=== PATIENT | female | born 1950 | race Caucasian/White ===

== ENCOUNTER 2024-11-17 20:59 | Emergency (ER) | payer MEDICARE ==
[~2024-11-17] VITALS: Ht 167.6 cm; Wt 70.3 kg
--- NOTE | 2024-11-17 21:10 | EKG ---
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
--- NOTE | 2024-11-17 21:56 | ERN ---
ED Note History of Present Illness Stated Complaint: LEFT SHOULDER PAIN, POST SX Chief Complaint: Post-Op Problem Time Seen by MD: 21:16 Dictation: This is a 73-year-old female who presented to the emergency room with complaints of severe left shoulder pain and tightness in the chest. Apparently this started 30-40 minutes prior to the [place]. Patient had left shoulder repair at [facility] on 11/09/2024. The daughter is a nurse practitioner who decided to bring her to [facility] due to her pain and diaphoresis and a concern for cardiac etiology. Patient received Motrin Tylenol and oxycodone prior to coming to the ER. Postoperatively she was allergic to the tape with some erythema and contact dermatitis. Otherwise she has been progressing well except for the severe excruciating pain today No fever chills or rigors. Temperature 98.5 pulse 74 respirations 16 blood pressure 79/42 with a pulse oximetry of 98% on room air Allergies: Coded Allergies: Sulfa (Sulfonamide Antibiotics) (Unverified Allergy, Unknown, 11/17/24) Past Medical History Past Medical History: Hypertension Surgical History: Appendectomy, Hysterectomy, Other Surgical History Other: NECK, LEFT SHOULDER, LEFT HIP Family History: Negative Social History: Negative History: Not Applicable RN Note Reviewed/Agreed w/PFSH: Yes Review of System Dictation Constitutional: Negative for fever,chills, and weight loss Eyes: Negative for injury, pain,redness, and discharge ENT: Negative for injury,pain or swelling Cardiovascular: Negative for chest pain, palpitations, and edema Respiratory: Negative for shortness of breath, cough, and wheezing, Abdomen/GI: Negative for abdominal pain, nausea, vomiting, diarrhea, and constipation Back: Negative for injury and pain : Negative for injury, bleeding and discharge MS/Extremity: Negative for injury and deformity severe pain in the left shoulder, positive for swelling of the left shoulder area Skin: Negative for rash, and discoloration Neuro: Negative for headache, weakness, numbness, tingling, and seizure Psych: Negative for suicide ideation, homicidal ideation, and hallucinations Initial Vital Sign VS Vital Signs Date Time Temp Pulse Resp B/P (MAP) Pulse Ox O2 Delivery O2 Flow Rate FiO2 11/17/24 21:00 98.4 74 16 79/42 96 Room Air 11/17/24 22:34 0 21 Physical Exam Dictation General: awake, alert, very uncomfortable due to severe pain Head/Face: Normocephalic, atraumatic Eyes: PERRL, EOMI, vision at baseline ENT: oral cavity clear, TMs clear, no signs of infection Neck: Trachea midline, supple, no nuchal rigidity Cardiovascular: RRR, normal S1/S2, No MRGs, no JVD Respiratory: CTAB, no respiratory distress, No rales or wheezes Abdomen: Soft, non-tender, non-distended, normal bowel sounds, no guarding or rebound. Skin: Warm, dry, normal turgor, no rash MS/Extremity: Pulses equal, no cyanosis, neurovascular intact, FROM Neuro: COAx4, GCS 15, strength 5/5, CN 2-12 intact, normal cerebellar exam, normal gait, Psych: Normal behavior, mood, and affect normal Extremities-trace edema without any palpable cords, Homans sign is negative Results (Laboratory/Radiology) Laboratory/Radiology Laboratory Tests Test 11/17/24 21:58 11/18/24 01:10 White Blood Count 15.1 K/uL (4.8-10.8) H Red Blood Count 3.61 MIL/uL (4.00-5.50) L Hemoglobin 11.4 g/dL (12.0-16.0) L Hematocrit 32.5 % (36-48) L Mean Corpuscular Volume 90.0 fL (79-99) Mean Corpuscular Hemoglobin 31.6 pg (27.0-33.0) Mean Corpuscular Hemoglobin Concent 35.1 g/dL (32.0-36.0) Red Cell Distribution Width 13.0 % (11.0-15.5) Platelet Count 455 K/uL (130-400) H Mean Platelet Volume 9.4 fL (7.5-10.5) Immature Granulocyte % (Auto) 1.0 % (0-1) Neutrophils (%) (Auto) 77.9 % (40.0-77.0) H Lymphocytes (%) (Auto) 11.9 % (21.0-51.0) L Monocytes (%) (Auto) 5.2 % (3.0-13.0) Eosinophils (%) (Auto) 3.2 % (0.0-8.0) Basophils (%) (Auto) 0.8 % (0.0-5.0) Neutrophils # (Auto) 11.8 K/uL (1.8-7.7) H Lymphocytes # (Auto) 1.8 K/uL (1.0-4.8) Monocytes # (Auto) 0.8 K/uL (0.1-1.0) Eosinophils # (Auto) 0.48 K/uL (0.00-0.70) Basophils # (Auto) 0.12 K/uL (0.00-0.20) Absolute Immature Granulocyte (auto 0.15 K/uL (0-1) Nucleated Red Blood Cells 0.0 % (0.0-0.19) Sodium Level 141 mmol/L (136-145) Potassium Level 3.5 mmol/L (3.5-5.1) Chloride Level 102 mmol/L (101-111) Carbon Dioxide Level 26 mmol/L (21-32) Blood Urea Nitrogen 27 mg/dL (7-18) H Creatinine 1.0 mg/dL (0.5-1.0) Glomerular Filtration Rate Calc 59 mL/min (>90) Random Glucose 133 mg/dL (70-105) H Total Calcium 8.6 mg/dL (8.5-10.1) Total Creatine Kinase 46 U/L (21-232) Troponin I High Sensitivity 7 ng/L (4-50) Urine Color LIGHT-YELLOW (YELLOW) Urine Appearance CLEAR (CLEAR) Urine pH 6.0 (5.0-8.0) Urine Specific [place] 1.020 (1.001-1.031) Urine Protein NEGATIVE mg/dL (NEGATIVE) Urine Glucose (UA) NEGATIVE mg/dL (NEGATIVE) Urine Ketones NEGATIVE mg/dL (NEGATIVE) Urine Occult Blood NEGATIVE (NEGATIVE) Urine Nitrate NEGATIVE (NEGATIVE) Urine Bilirubin NEGATIVE mg/dL (NEGATIVE) Urine Urobilinogen 0.2 mg/dL (0.2-1.0) Urine Leukocyte Esterase 25 Jose/uL (NEGATIVE) H Urine RBC 0-1 /HPF (0-1) Urine WBC 2-5 /HPF (0-1) H Urine Squamous Epithelial Cells RARE /HPF (0-2) Urine Bacteria FEW /HPF (None Seen) Urine Hyaline Casts 2-5 /LPF (0-1 /LPF) H Labs Reviewed?: Yes EKG Comment: Twelve lead EKG done on 11/17/2024 at 9:04 p.m. showed a heart rate of 80, TX interval 163, QRS 83, QT/QTC 370/427 Impression normal sinus rhythm with nonspecific ST-T changes no acute ST-T elevations or deep ST depressions. EKG rhythm strip shows a normal sinus rhythm with no acute STT wave changes. Interpreted by ER MD Dr. Mares CT Scan Comment: REASON: SEVER SWELLING AND PAIN POST OP ORDERING PHYSICIAN: GIULIANA MARES MD PROCEDURE: UPP EXT WO - CT UPPER EXT W/O CONTRAST EXAM: CT left upper extremity, without IV contrast. CLINICAL HISTORY: Severe swelling and postoperative pain. TECHNIQUE: Axial images were acquired through the left upper extremity without IV contrast. Reformatted images were reviewed. COMPARISON: None provided. FINDINGS: BONES: Diffuse osteopenia. No acute fracture or aggressively appearing osseous lesion. JOINTS: Glenohumeral joint replacement implant in place, no evidence of hardware failure.Mild to moderate acromioclavicular osteoarthritis. SOFT TISSUES: There is a large intramuscular hematoma involving the left pectoralis major muscle and the anterior belly of the deltoid muscle with surrounding soft tissue edema and inflammation; the pectoralis major component measures about 6 x 11 x 7 cm in the anterior belly of the deltoid component measures about 5 x 8 x 9 cm. IMPRESSION: There is a large intramuscular hematoma involving the left pectoralis major muscle and the anterior belly of the deltoid muscle with surrounding soft tissue edema and inflammation. No acute fracture. Glenohumeral joint replacement implant in place, no evidence of hardware failure. /[place] DICTATED BY: LISSET MARTIN Jr., MD DATE: 11/18/24314 ELECTRONICALLY SIGNED BY: LISSET MARTIN Jr., MD DATE: 11/18/24314 ED Course ED Course Orders Procedure Category Date Status Time Chest 1vw RAD 11/17/24 Resulted 21:02 12 Lead Ekg Tracing- EKG 11/17/24 Complete Technical 21:02 Cbc With Differential LAB 11/17/24 Complete 21:02 Creatine Kinase, Total LAB 11/17/24 Complete 21:02 Troponin I High LAB 11/17/24 Complete Sensitivity 21:02 Basic Metabolic Panel LAB 11/17/24 Complete 21:02 0.9%Nacl 1000ml (Ns PHA 11/17/24 Complete 1000ml) 22:00 Ketorolac PHA 11/17/24 Complete Tromethamine 15mg/Ml 22:00 Hydromorphone 0.5mg PHA 11/17/24 Complete Syg (Dilaudid 0.5mg 22:30 Hydromorphone 0.5mg PHA 11/18/24 Complete Syg (Dilaudid 0.5mg 00:00 Ceftriaxone 1g Vial PHA 11/18/24 Complete (Rocephine 1g Inj) 00:00 Apply Ice To CPOE 11/18/24 Transmitted Operative Site 00:28 Ct Upper Ext W/O CT 11/18/24 Resulted Contrast 00:29 Urinalysis Profile LAB 11/18/24 Complete 01:14 Current Medications Medications (Trade) Dose Ordered Sig/Stephanie Route PRN Reason Start Time Stop Time Status Last Admin Dose Admin Ceftriaxone Sodium (ROCEphine 1G INJ) 1 gm ONCE ONCE IVPB 11/18/24 00:00 11/18/24 00:02 DC 11/18/24 00:07 Hydromorphone HCl (DiLAUDid 0.5MG INJ) 0.5 mg ONCE ONCE IVP 11/17/24 22:30 11/17/24 22:32 DC 11/17/24 22:38 Hydromorphone HCl (DiLAUDid 0.5MG INJ) 0.5 mg ONCE ONCE IVP 11/18/24 00:00 11/18/24 00:02 DC 11/17/24 23:47 Ketorolac Tromethamine (toRADol) 15 mg ONCE ONCE IV 11/17/24 22:00 11/17/24 22:01 DC 11/17/24 21:57 Sodium Chloride 1,000 ml @ 0 mls/hr ONCE ONCE IV 11/17/24 22:00 11/17/24 22:01 DC 11/17/24 21:57 Vital Signs Date Time Temp Pulse Resp B/P (MAP) Pulse Ox O2 Delivery O2 Flow Rate FiO2 11/18/24 02:11 94 18 114/55 96 Room Air* 0 21 11/18/24 01:22 92 18 120/62 96 Room Air* 0 11/17/24 23:05 80 17 105/50 96 Room Air* 0 21 11/17/24 22:34 79 19 126/47 100 Room Air* 0 21 11/17/24 21:00 98.4 74 16 79/42 96 Room Air Medical Decision Making MDM Differential diagnosis: Severe postop pain, postop hemorrhage/hematoma, abscess, dislodgement of the prosthesis This is a 73-year-old female who presented to the emergency room with complaints of severe left shoulder pain and tightness in the chest. Apparently this started 30-40 minutes prior to the [place]. Patient had left shoulder repair at [facility] on 11/09/2024. The daughter is a nurse practitioner who decided to bring her to [facility] due to her pain and diaphoresis and a concern for cardiac etiology. Patient received Motrin Tylenol and oxycodone prior to coming to the ER. Postoperatively she was allergic to the tape with some erythema and contact dermatitis. Otherwise she has been progressing well except for the severe excruciating pain today No fever chills or rigors. Temperature 98.5 pulse 74 respirations 16 blood pressure 79/42 with a pulse oximetry of 98% on room air Gentle hydration and labs were obtained hemoglobin was 11.4. 9:40 p.m. chest x-ray requested. 10:50 p.m. chest x-ray unremarkable for any acute infiltrate. Troponins are negative. CBC showed a white count of 15.1 platelets 455. BNP 7 is significant for a BUN and creatinine of 27 and 1.0 with a glucose of 133 CT scan of the left upper extremity with the shoulder joint were requested Patient had intractable excruciating pain of the left shoulder with increasing swelling in the left pectoralis area. Multiple doses of Dilaudid in increments were given for pain relief. 2:50 a.m. I updated the patient and her daughter on the CT scan findings and concern for hematoma need for serial hemoglobins and possible transfusion as necessary and orthopedic surgical involvement to evaluate for a bleeder with the angiogram are whatever is deemed appropriate. Patient's daughter indicated that she lives in [facility] and it would be extremely difficult for her to get admitted at this facility and they would prefer to be discharged to present to [facility] on their own from here. They understand the risks benefits of leaving the hospital however the daughter is a nurse practitioner herself and indicated to me that they would be driving straight to the emergency room at [facility] which is only 5 minutes from their home Rationale: Tests considered and ordered secondary to shared decision making include: Previous outside records reviewed: Old ER visits. Risk of complication and/or morbidity or mortality of patient management: None Medications-Per medication reconciliation Need for hospitalization: Patient does not meet criteria for hospitalization. Need for emergency major/minor surgery: No There are no social concerns with this patient. Prescription drug management Prescriptions will include symptomatic care Patient's prior external medical records from other ER visits were reviewed by me as indicated. Prior testing and results from previous visits were reviewed. Prior tests were taken into account with medical decision making and resource utilization, independent historian/historians were used to obtain complete medical history. I independently interpreted the test that were performed, results were reviewed by me and considered findings on radiology if ordered. Medical management and examination interpretation discussions were had by me with other qualified healthcare professionals as indicated for the patient's care. DX & DISP Disposition: Discharge Departure Impression: Primary Impression: Postoperative hematoma Additional Impression: Acute postoperative pain of left shoulder Condition: Stable Additional Instructions: Patient and the caregiver have been informed of all the diagnostic tests and the imaging conducted during the today's visit to the emergency room and has verbalized understanding of the results I have personally reviewed and interpreted all diagnostic exams performed here in the ER today as well as the vital signs documented by the nursing staff. The patient is now being discharged to home and should follow up with the primary care physician or the specialist as directed by the ER staff. Follow-up with primary care provider in 1 to 2 days. Take medications as directed here in the emergency room. Okay to continue home medications unless otherwise discussed during your visit in the emergency room today. Return to your nearest emergency room if symptoms worsen or if there is no improvement. Call 911 if you need immediate assistance. Take Tylenol or Motrin [id number] as needed and if no contraindications are present. Increase oral hydration. A wound culture or urine culture was ordered here in the emergency room department please follow-up with primary care provider and advise them to get repeat ports from our facility. If you had any Blair wrap/splints that were applied here, please do not remove them until you see your primary care or specialty. GIULIANA MARES MD Nov 17, 2024 21:56
[2024-11-17] MEDS: 0.9%NACL 1000ML 1,000 ML IV ONE (21:57)
[2024-11-17 22:05] LABS: IMMATURE GRANULOCYTE ABSOLUTE 0.15 K/uL (0-1); NUCLEATED RED BLOOD CELLS 0.0 % (0.0-0.19); PLATELET COUNT (AUTO) 455 K/uL (130-400); RED BLOOD CELL COUNT(AUTO) 3.61 MIL/uL (4.00-5.50); RED CELL DISTRIBUTION WIDTH 13.0 % (11.0-15.5); WHITE BLOOD COUNT (AUTO) 15.1 K/uL (4.8-10.8)
--- NOTE | 2024-11-17 22:09 | HMCIMG ---
EXAM: CR Chest, 1 View. CLINICAL HISTORY: CHEST PAIN COMPARISON: None provided. FINDINGS: LUNGS: There is no mass, infiltrate, or acute pulmonary abnormality. PLEURAL SPACES: No pleural effusion or pneumothorax. MEDIASTINUM: The cardiomediastinal silhouette is within normal limits. BONES: No acute osseous abnormality. Cervical hardware. Left total shoulder arthroplasty. IMPRESSION: No acute cardiopulmonary pathology is evident. /[place]
[2024-11-17 22:12] LABS: CREATININE 1.0 mg/dL (0.5-1.0); GLOMERULAR FILTR. RATE CALC 59.0 mL/min (>90); GLUCOSE,RANDOM 133.0 mg/dL (70-105); SODIUM SERUM 141.0 mmol/L (136-145); UREA NITROGEN, BLOOD 27.0 mg/dL (7-18)
[2024-11-17 22:21] LABS: CREATINE KINASE, TOTAL 46.0 U/L (21-232)
--- NOTE | 2024-11-18 00:35 | NUR ---
ICE PACK APPLIED TO L SHOULDER
[2024-11-18 01:21] LABS: APPEARANCE,URINE CLEAR (CLEAR); GLUCOSE, URINE (UA) NEGATIVE (NEGATIVE); LEUKOCYTE ESTERASE ,URINE 25 Leu/uL (NEGATIVE); NITRATE,URINE NEGATIVE (NEGATIVE); OCCULT BLOOD,URINE NEGATIVE (NEGATIVE)
[2024-11-18 01:27] LABS: ADD UA MICROSCOPIC YES
[2024-11-18 01:31] LABS: SQUAMOUS EPITHELIAL CELL,UR RARE /HPF (0-2)
--- NOTE | 2024-11-18 02:16 | HMCIMG ---
EXAM: CT left upper extremity, without IV contrast. CLINICAL HISTORY: Severe swelling and postoperative pain. TECHNIQUE: Axial images were acquired through the left upper extremity without IV contrast. Reformatted images were reviewed. COMPARISON: None provided. FINDINGS: BONES: Diffuse osteopenia. No acute fracture or aggressively appearing osseous lesion. JOINTS: Glenohumeral joint replacement implant in place, no evidence of hardware failure.Mild to moderate acromioclavicular osteoarthritis. SOFT TISSUES: There is a large intramuscular hematoma involving the left pectoralis major muscle and the anterior belly of the deltoid muscle with surrounding soft tissue edema and inflammation; the pectoralis major component measures about 6 x 11 x 7 cm in the anterior belly of the deltoid component measures about 5 x 8 x 9 cm. IMPRESSION: There is a large intramuscular hematoma involving the left pectoralis major muscle and the anterior belly of the deltoid muscle with surrounding soft tissue edema and inflammation. No acute fracture. Glenohumeral joint replacement implant in place, no evidence of hardware failure. /[place]
[2024-11-18 03:00] VITALS: BP 122/60; PULSE 91; RESP 18; TEMP 98.3; O2SAT 97
== END 2024-11-18 03:09 | disposition home or self-care (01) ==
LOC: EDH 20:59
DX: L76.32 Postprocedural hematoma of skin and subcutaneous tissue following other procedure (principal); G89.18 Other acute postprocedural pain; M25.512 Pain in left shoulder; I10 Essential (primary) hypertension; Z47.1 Aftercare following joint replacement surgery; Z88.2 Allergy status to sulfonamides; Z90.49 Acquired absence of other specified parts of digestive tract; Z90.710 Acquired absence of both cervix and uterus; Z96.60 Presence of unspecified orthopedic joint implant
CPT/HCPCS: 99285; 96374; 71045; 96375 ×2; 82550; 84484; 80048; 85025; 81001; 36415; 96376; 93005; 73200; J1885; J7030; J1171 ×2; J0696